=== PATIENT | female | born 1970 | race African-American/Black ===

== ENCOUNTER 2018-05-08 16:51 | Emergency (ER) | payer OTHER ==
[2018-05-08 17:30] VITALS: BP 131/90; PULSE 94; TEMP 98.6; BMI 25.7
--- NOTE | 2018-05-08 18:22 | PDOC ---
History of Present Illness - General Chief Complaint: RX Refill Stated Complaint: RX Refill Time Seen by Provider: 05/08/18 17:43 History Source: Patient Exam Limitations: No Limitations - History of Present Illness Initial Comments: 05/08/18 19:02 Patient presents for refill of her psychiatric medication. Patient states she ran out 3 days ago. She states that she has an appointment with [facility] in [place] for Tuesday05/14/18. She has no other complaints at this time. Past History - Travel Traveled outside of the country in the last 30 days: No Close contact w/someone who was outside of country & ill: No - Past Medical History Allergies/Adverse Reactions: Allergies Allergy/AdvReac Type Severity Reaction Status Date / Time azithromycin [From Zithromax] Allergy Verified 05/08/18 17:17 ceftriaxone [From Rocephin] Allergy Verified 05/08/18 17:18 Home Medications: Ambulatory Orders Benztropine Mesylate [Cogentin -] 0.5 mg PO DAILY #10 tablet 02/07/18 Lamotrigine [Lamictal] 300 mg PO DAILY #20 tablet 02/07/18 Quetiapine Fumarate [Seroquel -] 300 mg PO HS #10 tab 02/07/18 Zolpidem Tartrate [Ambien] 10 mg PO HS #10 tablet MDD 1 02/07/18 Benztropine Mesylate 1 mg PO HS #10 tablet 05/08/18 Bupropion HCl 100 mg PO DAILY #10 tablet 05/08/18 Lamotrigine [Lamictal -] 25 mg PO BID #20 tablet 05/08/18 Quetiapine Fumarate [Seroquel] 100 mg PO ASDIR #30 tablet 05/08/18 Zolpidem Tartrate [Ambien] 10 mg PO HS #10 tablet MDD 1 05/08/18 COPD: No Psychiatric Problems: Yes (Schizophrenia, depression) Seizures: Yes - Suicide/Smoking/Psychosocial Hx Smoking History: Never smoked Have you smoked in the past 12 months: No Hx Alcohol Use: No Drug/Substance Use Hx: No Substance Use Type: None Review of Systems - Review of Systems Able to Perform ROS?: Yes Comments:: 05/08/18 19:02 CONSTITUTIONAL: Present: medication refill Absent: fever, chills, diaphoresis, generalized weakness, malaise, loss of appetite HEENT: Absent: rhinorrhea, nasal congestion, throat pain, throat swelling, difficulty swallowing, mouth swelling, ear pain, eye pain, visual Changes CARDIOVASCULAR: Absent: chest pain, loss of consciousness, palpitations, irregular heart rate, peripheral edema RESPIRATORY: Absent: cough, shortness of breath, dyspnea with exertion, orthopnea, wheezing, stridor, hemoptysis GASTROINTESTINAL: Absent: abdominal pain, abdominal distension, nausea, vomiting, diarrhea, constipation, melena, hematochezia GENITOURINARY: Absent: dysuria, frequency, urgency, hesitancy, hematuria, flank pain, genital pain MUSCULOSKELETAL: Absent: myalgia, arthralgia, joint swelling SKIN: Absent: rash, itching, pallor HEMATOLOGIC/IMMUNOLOGIC: Absent: easy bleeding, easy bruising, lymphadenopathy, frequent infections ENDOCRINE: Absent: unexplained weight gain, unexplained weight loss, heat intolerance, cold intolerance NEUROLOGIC: Absent: headache, focal weakness or paresthesias, dizziness, unsteady gait, seizure, mental status changes, bladder or bowel incontinence PSYCHIATRIC: Absent: anxiety, depression, suicidal or homicidal ideation, hallucinations. Is the patient limited [place]an proficient: No *Physical Exam - Vital Signs Last Vital Signs Temp Pulse Resp BP Pulse Ox 98.6 F 94 H 16 131/90 99 05/08/18 17:18 05/08/18 17:18 05/08/18 17:18 05/08/18 17:18 05/08/18 17:18 - Physical Exam Comments: 05/08/18 19:03 GENERAL: Well developed, well nourished. Awake and alert. No acute distress. HEENT: Normocephalic, atraumatic. PERRLA, EOMI. No conjunctival pallor. Sclera are non- icteric. Moist mucous membranes. Oropharynx is clear. NECK: Supple. Full ROM. No JVD. Carotid pulses 2+ and symmetric, without bruits. No thyromegaly. No lymphadenopathy. CARDIOVASCULAR: Regular rate and rhythm. No murmurs, rubs, or gallops. Distal pulses are 2+ and symmetric. PULMONARY: No evidence of respiratory distress. Lungs clear to auscultation bilaterally. No wheezing, rales or rhonchi. ABDOMINAL: Soft. Non-tender. Non-distended. No rebound or guarding. No organomegaly. Normoactive bowel sounds. MUSCULOSKELETAL Normal range of motion at all joints. No bony deformities or tenderness. No CVA tenderness. EXTREMITIES: No cyanosis. No clubbing. No edema. No calf tenderness. SKIN: Warm and dry. Normal capillary refill. No rashes. No jaundice. NEUROLOGICAL: Alert, awake, appropriate. Cranial nerves 2-12 intact. No deficits to light touch and temperature in face, upper extremities and lower extremities. No motor deficits in the in face, upper extremities and lower extremities. Normoreflexic in the upper and lower extremities. Normal speech. Toes are down- going bilaterally. Gait is normal without ataxia. PSYCHIATRIC: Cooperative. Good eye contact. Appropriate mood and affect. Medical Decision Making - Medical Decision Making 05/08/18 19:03 Patient is a 48-year-old female who presents for medication refill. Medication list reconciled. DIETITIAN CHIEF consulted. Reference #: [id number]. Patient is not filled her zolpidem since . She was given a 30 day supply. Medications sent to pharmacy of choice. Instructed patient to keep her follow-up appointment Discharge home I discussed the physical exam findings, ancillary test results and final diagnoses with the patient. I answered all of the patient's questions. The patient was satisfied with the care received and felt comfortable with the discharge plan and treatment plan. The Patient agrees to follow up with the primary care physician/specialist within 24-72 hours. Return precautions were given. *DC/Admit/Observation/Transfer Diagnosis at time of Disposition: Medication refill - Discharge Dispostion Disposition: HOME Condition at time of disposition: Stable Decision to Admit order: No - Prescriptions Prescriptions: Benztropine Mesylate 1 mg PO HS #10 tablet Bupropion HCl 100 mg PO DAILY #10 tablet Lamotrigine [Lamictal -] 25 mg PO BID #20 tablet Quetiapine Fumarate [Seroquel] 100 mg PO ASDIR #30 tablet Zolpidem Tartrate [Ambien] 10 mg PO HS #10 tablet MDD 1 - Referrals Referrals: Maciej Herzog MD [Staff Physician] - - Patient Instructions Additional Instructions: Your medications were refilled today Please keep your appointment with [facility] for Tuesday with Dr. Plummer Return to the ED for any new or worsening symptoms - Post Discharge Activity
== END 2018-05-08 18:22 | disposition home or self-care (01) ==
LOC: JERFT 16:51
DX: Z76.0 Encounter for issue of repeat prescription (principal); F20.9 Schizophrenia, unspecified; F32.9 Major depressive disorder, single episode, unspecified; G40.909 Epilepsy, unspecified, not intractable, without status epilepticus
CPT/HCPCS: 99281-25

== ENCOUNTER 2018-05-25 12:50 | Emergency (ER) | payer OTHER ==
[2018-05-25 13:02] VITALS: BP 135/90; PULSE 104; TEMP 98.1; BMI 32.3
--- NOTE | 2018-05-25 14:35 | PDOC ---
History of Present Illness - General Chief Complaint: RX Refill Stated Complaint: RX REFILL Time Seen by Provider: 05/25/18 13:24 History Source: Patient Exam Limitations: No Limitations - History of Present Illness Initial Comments: 05/25/18 14:28 HISTORY OF PRESENT ILLNESS: This is a 48-year-old female with past medical history of schizophrenia and bipolar disorder presents emergency Department asking for refills of her psychiatric medications. Patient states she has an appointment with her therapist later today and will be establishing care with a new psychiatrist at that time. Patient reports recent discharge from [facility] in [place] after one month psychiatric stay. Patient is reporting increased stressors including the of her mother since her discharge. Patient states she ran out of her medication 2 days ago but is currently not expressing any symptoms. Patient denies any suicidal ideation, homicidal ideation, paranoid ideation, audio hallucinations, visual hallucinations or tactile hallucinations. Patient denies feeling depressed at this time. Patient denies all physical complaints at this time. No recent travel or sick contacts. PAST MEDICAL HISTORY: see HPI SURGICAL HISTORY: Denies ALLERGIES: Ceftriaxone, Zithromax REVIEW OF SYSTEMS General/Constitutional: Denies fever or chills. Denies weakness, weight change. HEENT: Denies change in vision. Denies ear pain or discharge. Denies sore throat. Cardiovascular: Denies chest pain or shortness of breath. Respiratory: Denies cough, wheezing, or hemoptysis. Gastrointestinal: Denies nausea, vomiting, diarrhea or constipation. Denies rectal bleeding. Genitourinary: Denies dysuria, frequency, or change in urination. Musculoskeletal: Denies joint or muscle swelling or pain. Denies neck or back pain. Skin and breasts: Denies rash or easy bruising. Neurologic: Denies headache, vertigo, loss of consciousness, or loss of sensation. Psychiatric: Denies depression or anxiety. Endocrine: Denies increased thirst. Denies abnormal weight change. Hematologic/Lymphatic: Denies anemia, easy bleeding, or history of blood clots. Allergic/Immunologic: Denies hives or skin allergy. Denies latex allergy. PHYSICAL EXAM General Appearance: Well-appearing, appropriately dressed. No apparent distress , no intoxication. HEENT: EOMI, PERRLA, normal ENT inspection, normal voice, TMs normal, pharynx normal. No conjunctival pallor. No photophobia, scleral icterus. Neck: Supple. Trachea midline. No tenderness, rigidity, carotid bruit, stridor , lymphadenopathy, or thyromegaly. Respiratory/Chest: Lungs CTAB. No shortness of breath, chest tenderness, respiratory distress, accessory muscle use. No crackles, rales, rhonchi, stridor , wheezing, dullness Cardiovascular: RRR. S1, S2. No JVD, murmur, bradycardia, tachycardia. Vascular Pulses: Dorsalis-Pedis (R): 2+, Dorsalis-Pedis (L): 2+ Gastrointestinal/Abdominal: Normal bowel sounds. Abdomen soft, non-distended. No tenderness or rebound tenderness. No organomegaly, pulsatile mass, guarding, hernia, hepatomegaly, splenomegaly. Lymphatic: No adenopathy, tenderness. Musculoskeletal/Extremities: Normal inspection. FROM of all extremities, normal capillary refill. Pelvis Stable. No CVA tenderness. No tenderness to extremities, pedal edema, swelling, erythema or deformity. Integumentary: Appropriate color, dry, warm. No cyanosis, erythema, jaundice or rash Neurologic: equipment washer II-XII intact. Fully oriented, alert. Appropriate mood/affect. Motor strength 5/5. No appreciable EOM palsy, facial droop or sensory deficit. Past History - Past Medical History Allergies/Adverse Reactions: Allergies Allergy/AdvReac Type Severity Reaction Status Date / Time azithromycin [From Zithromax] Allergy Verified 05/25/18 13:02 ceftriaxone [From Rocephin] Allergy Verified 05/25/18 13:02 Home Medications: Ambulatory Orders Benztropine Mesylate [Cogentin -] 0.5 mg PO DAILY #10 tablet 02/07/18 Lamotrigine [Lamictal] 300 mg PO DAILY #20 tablet 02/07/18 Quetiapine Fumarate [Seroquel -] 300 mg PO HS #10 tab 02/07/18 Zolpidem Tartrate [Ambien] 10 mg PO HS #10 tablet MDD 1 02/07/18 Benztropine Mesylate 1 mg PO HS #10 tablet 05/08/18 Bupropion HCl 100 mg PO DAILY #10 tablet 05/08/18 Lamotrigine [Lamictal -] 25 mg PO BID #20 tablet 05/08/18 Quetiapine Fumarate [Seroquel] 100 mg PO ASDIR #30 tablet 05/08/18 Zolpidem Tartrate [Ambien] 10 mg PO HS #10 tablet MDD 1 05/08/18 Asthma: Yes COPD: No Psychiatric Problems: Yes (Schizophrenia, depression) Seizures: Yes - Suicide/Smoking/Psychosocial Hx Smoking History: Never smoked Have you smoked in the past 12 months: No Hx Alcohol Use: No Drug/Substance Use Hx: No Substance Use Type: None *Physical Exam - Vital Signs Last Vital Signs Temp Pulse Resp BP Pulse Ox 98.1 F 104 H 18 135/90 100 05/25/18 13:00 05/25/18 13:00 05/25/18 13:00 05/25/18 13:00 05/25/18 13:00 Medical Decision Making - Medical Decision Making 05/25/18 14:32 A/P: 48-year-old female with history of schizophrenia and depression presents emergency department for refills of her psychiatric medications. Physical exam is within normal limits Patient denies suicidal ideation, homicidal ideation, auditory hallucinations, visual hallucinations, tactile hallucinations Patient lives with her children Chart review reveals the patient received refills of her medications approximately 2 weeks ago. At that time patient stated she was following up with her psychiatrist. Patient today stated that she will see her therapist today where she will be connected with the psychiatrist. It was explained to the patient that refills for psychiatric medications will not be provided a second time as patient is currently asymptomatic. Follow-up care of her medications was reinforced and referral for psychiatry was given. Patient also given the number for the [facility] crisis prevention response team. Patient was unhappy with the decision but agrees to see her therapist today. *DC/Admit/Observation/Transfer Diagnosis at time of Disposition: Medication refill - Discharge Dispostion Disposition: HOME Condition at time of disposition: Stable Decision to Admit order: No - Referrals Referrals: Roxanna Armstrong MD [Primary Care Provider] - Yan Ayala MD [Staff Physician] - - Patient Instructions Additional Instructions: You need to follow-up with a psychiatrist or a licensed mental health provider who can continue to fill your prescriptions. Keep her appointment with your therapist today who may be able to Do with a psychiatrist. You've been given the number for Dr. Ayala who is a psychiatrist. Please call for further evaluation. [facility] does walking evaluations 24 hours a day 7 days a week. You can call [phone] if he needed immediate assistance. [facility] also has a crisis response team at [facility] in [place]. - Post Discharge Activity
== END 2018-05-25 14:33 | disposition home or self-care (01) ==
LOC: JERFT 12:50
DX: F31.9 Bipolar disorder, unspecified (principal); R20.9 Unspecified disturbances of skin sensation; G40.909 Epilepsy, unspecified, not intractable, without status epilepticus; J45.909 Unspecified asthma, uncomplicated
CPT/HCPCS: 99281-25